=== PATIENT | male | born 1990 | race Caucasian/White ===

== ENCOUNTER 2017-02-26 14:19 | Outpatient (CLI) | payer OTHER ==
--- NOTE | 2017-02-27 18:47 | MRI Report ---
EXAM: MRI CHEST WITHOUT CONTRAST INDICATION: Rib/chest wall pain after bronchitis in September 2012. This radiates to the pectoralis re gion occasionally. COMPARISON: None. TECHNIQUE: The following sequences were acquired of the left lower chest wall without contrast: Sagit sheeba STIR, axial T1-weighted, axial STIR, coronal T1-weighted, coronal STIR, axial T2-weighted fat-sup pressed, sagittal STIR, sagittal T1-weighted. FINDINGS: Bones: The marker indicating a site of pain is at a lower rib costochondral junction anteriorly. Ther e is no bony or cartilage edema in this region. No obvious fractures. Musculature: No edema or fatty atrophy. Other: Limited visualization of portions of the thoracic and abdominal cavities demonstrates no gross abnormalities. IMPRESSION: No findings to explain patient's pain. [facility] Referring Provider Line: [phone] SITE ID: [id number]
== END 2017-02-26 14:20 | disposition home or self-care (01) ==
LOC: DI 14:19
PROVIDERS: ATTEND General Practice
DX: R07.9 Chest pain, unspecified (principal)
CPT/HCPCS: 71550